=== PATIENT | female | born 1995 ===

== ENCOUNTER 2019-03-29 00:19 | Emergency (ER) | payer SELFPAY ==
[2019-03-29 00:39] VITALS: BMI 28.0
[2019-03-29 00:42] VITALS: O2SAT 100
--- NOTE | 2019-03-29 01:27 | ED PDOC ---
Upper Extremity Pain/Injury Time Seen by Provider: 03/29/19 00:52 Chief Complaint (Nursing): Finger,Hand,&Wrist History Per: Patient History/Exam Limitations: no limitations Onset/Duration Of Symptoms: Hrs Additional Complaint(s): 23 yo healthy F presents for getting a ring stuck on her finger with swelling and pain. It is on her right 2nd digit, she tried getting it off with at home things but unable. She notes she put the ring on yesterday and it was fine, but then a few hours ago her finer started to swell. She denies numbness or tingling, decrease motor or sensation Past Medical History Reviewed: Historical Data, Nursing Documentation, Vital Signs Vital Signs: Last Vital Signs Temp 99.1 F 03/29/19 00:39 Pulse 102 H 03/29/19 00:39 Resp 18 03/29/19 00:39 BP 130/80 03/29/19 00:39 Pulse Ox 100 03/29/19 00:39 Primary Care Provider: Procedure,Nonphys - Medical History PMH: No Chronic Diseases - Family History Family History: States: No Known Family Hx - Allergies Allergies/Adverse Reactions: Allergies Allergy/AdvReac Type Severity Reaction Status Date / Time No Known Allergies Allergy Verified 03/29/19 00:39 Review of Systems Musculoskeletal: Positive for: Hand Pain Neurological: Negative for: Numbness Physical Exam - Reviewed Nursing Documentation Reviewed: Yes Vital Signs Reviewed: Yes - Physical Exam Comments: GENERAL APPEARANCE: Patient is awake, alert, oriented x 3, in mild obvious discomfort SKIN: Warm, dry; (-) cyanosis. CHEST AND RESPIRATORY: (-) chest wall tenderness. Lungs: (-) rales, (-) rhonchi, (-) wheezes; breath sounds equal bilaterally. HEART AND CARDIOVASCULAR: (-) irregularity; (-) murmur, (-) gallop. EXTREMITIES: pulses + 2, capillary refill <2 sec, RUE: gold ring at bottom of R 2nd digit with swelling and erythema around it, unable to remove without devices (-) deformity. (-) distal neurovascular deficit, NVI NEURO AND PSYCH: Mental status as above. - ECG O2 Sat by Pulse Oximetry: 100 Medical Decision Making Medical Decision Makin:00 ring stuck with swelling ring was removed with electric and manual ring cutter, pt tolerated well, ice applied 0140 on re eval pt is feeling better, swelling improved discussed diagnosis, treatment, return precautions and f/u with pt who is understanding, in agreement and stable for dc Disposition - Clinical Impression Clinical Impression: Ring or other jewelry causing external constriction, initial encounter - Patient ED Disposition Is Patient to be Admitted: No Counseled Patient/Family Regarding: Studies Performed, Diagnosis, Need For Followup - Disposition Referrals: your, doctor [Other] Disposition: Routine/Home Disposition Time: 01:45 Condition: STABLE Additional Instructions: Thank you for letting us take care of you today. Rest, ice and elevate your hand/finger to help swelling. The emergency medical care you received today was directed at your acute symptoms. If you were prescribed any medication, please fill it and take as directed. It may take several days for your symptoms to resolve. Return to the Emergency Department if your symptoms worsen, do not improve, or if you have any other problems. Please contact your doctor in 2 days for re-evaluation and follow up / or call one of the physicians/clinics you have been referred to that are listed on the Patient Visit Information form that is included in your discharge packet. Bring any paperwork you were given at discharge with you along with any medications you are taking to your follow up visit. Our treatment cannot replace ongoing medical care by a primary care provider (PCP) outside of the emergency department. Instructions: Swelling Forms: [id number] ([place]) - POA Present On Arrival: None
[2019-03-29 02:46] VITALS: BP 116/64; PULSE 76; RESP 16; TEMP 98.9
== END 2019-03-29 01:46 | disposition home or self-care (01) ==
LOC: H.ER 00:19
DX: S60.450A Superficial foreign body of right index finger, initial encounter (principal); W49.04XA Ring or other jewelry causing external constriction, initial encounter